=== PATIENT | male | born 1995 | race Caucasian/White ===

== ENCOUNTER 2019-08-03 00:46 | Emergency (ER) | payer SELFPAY ==
--- NOTE | 2019-08-03 01:32 | XRAY Report ---
Reason: injury to bridge of nose. Procedure Date: 08/03/2019 Accession Number: [id number] / [id number] Procedure: XR - Nasal Bones CPT Code: Final Report FULL RESULT: EXAM: NASAL BONES RADIOGRAPHY EXAM DATE: 08/03/2019 01:12 AM. CLINICAL HISTORY: Injury to bridge of nose. COMPARISONS: None. TECHNIQUE: 3 views. FINDINGS: Bones: There is a slightly depressed fracture along the distal aspect of the nasal bone. Sinuses: Normal. No opacities or fluid levels. Other: Normal. No soft tissue swelling. IMPRESSION: Slightly displaced fracture of the distal nasal bone. RADIA
[2019-08-03 03:09] VITALS: BP 147/71
--- NOTE | 2019-08-03 03:28 | ED Physician Documentation ---
PD HPI HEAD INJURY - Stated complaint Stated Complaint: NOSE INJ - Chief complaint Chief Complaint: Heent - History obtained from History obtained from: Patient - History of Present Illness Mechanism of head injury: Fell Where head injury occurred: Home Timing - onset: Enter time (00:00), Today Location of injury: Other (nose) Quality of pain: Pain Associated symptoms: No: LOC Symptoms improve with: Rest Symptoms worsen with: Palpation Contributing factors: No: Anticoagulated, Intoxicated Similar symptoms before: Has not had sx before Recently seen: Not recently seen - Additional information Additional information: was skateboarding at home on a home-made half-pipe in his backyard when he lost his footing and his nose struck metal railing. c/o nasal pain and epistaxis. denies LOC Review of Systems Eyes: denies: Loss of vision, Decreased vision Nose: reports: Congestion, Epistaxis Musculoskeletal: reports: Pain with weight bearing. denies: Neck pain Neurologic: reports: Reviewed and negative PD PAST MEDICAL HISTORY - Past Medical History Past Medical History: No - Past Surgical History Past Surgical History: Yes General: Other - Present Medications Home Medications: Ambulatory Orders Medication Instructions Recorded Confirmed No Known Home Medications 08/03/19 08/03/19 - Allergies Allergies/Adverse Reactions: Allergies Allergy/AdvReac Type Severity Reaction Status Date / Time No Known Drug Allergies Allergy Verified 08/03/19 01:01 - Social History Does the pt smoke?: Yes Smoking Status: Current every day smoker Does the pt drink ETOH?: Yes ETOH Use: Liquor Does the pt have substance abuse?: No - Immunizations Immunizations are current?: Yes - POLST Patient has POLST: No PD ED PE NORMAL - Vitals Vital signs reviewed: Yes - General General: Alert and oriented X 3, No acute distress, Well developed/nourished - HEENT HEENT: PERRL, EOMI, Moist mucous membranes, Pharynx benign, Dentition benign - Neck Neck: No bony TTP PD ED PE EXPANDED - HEENT HEENT: Other (nasal bony tenderness with symmetric swelling/widening of nasal bridge. no sinus tenderness or crepitus. small blood in both nares without active bleeding. no nasal septal hematoma either nare) Results - Vitals Vitals: Oxygen O2 Source Room air - Rads (name of study) nasal xrays Radiology: Prelim report reviewed, See rad report PD MEDICAL DECISION MAKING - ED course Complexity details: reviewed results, re-evaluated patient, considered differential, d/w patient Departure - Departure Disposition: 01 Home, Self Care Clinical Impression: Nasal bone fracture Qualifiers: Encounter type: initial encounter Fracture type: closed Qualified Code(s): S02.2XXA - Fracture of nasal bones, initial encounter for closed fracture Condition: Good Instructions: ED Fx Nasal Conf W X Ray Discharge Date/Time: 08/03/19 03:48
== END 2019-08-03 03:48 | disposition home or self-care (01) ==
LOC: ED 00:46
DX: S02.2XXA Fracture of nasal bones, initial encounter for closed fracture (principal); V00.131A Fall from skateboard, initial encounter; Y93.51 Activity, roller skating (inline) and skateboarding; Y92.007 Garden or yard of unspecified non-institutional (private) residence as the place of occurrence of the external cause; F17.200 Nicotine dependence, unspecified, uncomplicated
CPT/HCPCS: 70160; 99282; 99283